=== PATIENT | male | born 1960 | race Two or more races ===

== ENCOUNTER 2016-05-08 12:10 | Emergency (ER) | payer MEDICAID ==
[~2016-05-08 12:10] MED LIST: ASPI81CH49 PO; ATOR10TA52 PO; B-CO-5 OR; CARV12.516 PO; CLOP75TA41 PO; FURO80TA PO; GABA300C8 PO; GEM600T PO; LEVO75TA42 PO; LIDO5DIS21 TOP; OYST500T28 PO; [UNRECOGNIZED DRUG - CODE] PO
[2016-05-08 12:22] VITALS: BP 133/73
== END 2016-05-08 14:40 | disposition left against medical advice (07) ==
LOC: EDUNIT# 12:10 → ER 12:26
DX: R10.30 Lower abdominal pain, unspecified (principal); Z53.29 Procedure and treatment not carried out because of patient's decision for other reasons

== ENCOUNTER 2017-05-18 17:13 | Observation (INO) | payer MEDICAID ==
[~2017-05-18] VITALS: Ht 182.9 cm; Wt 47.6 kg
[~2017-05-18 17:13] MED LIST changes: +CAR125T PO; -CARV12.516 PO; +GABA300C10 PO; -GABA300C8 PO
[2017-05-18] MEDS ORDERED: ASPirin 81 mg TAB PO ONE (17:45)
[2017-05-18 17:54] VITALS: BP 179/93
== END 2017-05-18 18:58 | disposition left against medical advice (07) | DRG 203 ==
LOC: ER 17:13 → EDBD 17:13 → MERGE 17:13 → OVERFLOW 17:47 → ER 18:58
PROVIDERS: ADMIT Family Medicine; ATTEND Family Medicine
DX: R07.89 Other chest pain (principal); I13.2 Hypertensive heart and chronic kidney disease with heart failure and with stage 5 chronic kidney disease, or end stage renal disease; I50.9 Heart failure, unspecified; N18.6 End stage renal disease; Z82.49 Family history of ischemic heart disease and other diseases of the circulatory system
CPT/HCPCS: G0378